=== PATIENT | female | born 1990 | race American Indian/Alaskan Native ===

== ENCOUNTER 2020-10-03 22:37 | Emergency (ER) | payer SELFPAY ==
[2020-10-03] MEDS ORDERED: ONDANSETRON 4 MG/2 ML INJ IV ONE (23:40)
[2020-10-03] MEDS ORDERED: MORPHINE 4 MG/1 ML INJ IV ONE (23:40)
--- NOTE | 2020-10-03 23:45 | Event Note ---
ED Screening Note Date of service: 10/03/20 Time: 23:41 ED Screening Note: Patient is a nulliparous 30-year-old -Citizen Of [place] female with no past medical history presents to the ED with acute onset persistent right lower quadrant pain for the last 4 days. Patient states that the pain initially was in the left lower quadrant area but shifted to the right lower quadrant area 2 days ago. Patient states that before arrival in the ED the pain was an 8 out of 10, sharp and persistent and that the pain gets worse with movement. Patient states that her LMP was September 01, 2020 and that although she usually experiences dysmenorrhea, she states that this usually is mild but that the current pain is worse than dysmenorrhea. Patient denies nausea, vomiting, diarrhea, dizziness, syncope, vaginal bleeding, vaginal discharge, dysuria, traumatic injury or heavy lifting, chest pain or shortness of breath, fever, chills or low back pain. This initial assessment/diagnostic orders/clinical plan/treatment(s) is/are subject to change based on patients health status, clinical progression and re- assessment by fellow clinical providers in the ED. Further treatment and workup at subsequent clinical providers discretion. Patient/guardian urged not to elope from the ED as their condition may be serious if not clinically assessed and managed. Initial orders include: CBC, CMP, UA, lipase, hCG urine, abdomen pelvis CT scan with contrast
[2020-10-04 00:08] LABS: Bilirubin,Urine NEG (Negative); Blood,Urine MOD (Negative); Color,Urine Yellow (Yellow); Mucus,Urine FEW /HPF; Urobilinogen,Urine < 2.0 mg/dL (<2.0)
--- NOTE | 2020-10-04 01:05 | Emergency Department Report ---
ED Abdominal Pain HPI - General Chief Complaint: Abdominal Pain Stated Complaint: PAIN IN PELVIC AREA/FREQ URINATION Source: patient Mode of arrival: Ambulatory Limitations: No Limitations - History of Present Illness Initial Comments: Patient is a nulliparous 30-year-old -[place] female with no past medical history presents to the ED with complaint of acute onset persistent severe right lower quadrant pain with urinary frequency and urgency for the last 4 days. Patient states the pain was initially on the left lower quadrant area but subsequently shifted to the right lower quadrant and has been persistent especially in the last 12 hours. Patient states that the pain is worse with any movement. Patient denies dizziness, syncope, chest pain, shortness of breath, fever, chills, nausea, vomiting, diarrhea, vaginal bleeding, vaginal discharge, dysuria or low back pain. MD Complaint: abdominal pain (Right lower quadrant pain), other (Urinary frequency and urgency) -: Sudden, days(s) (4) Location: RLQ, suprapubic Radiation: RLQ, suprapubic Migration to: no migration Severity scale (0 -10): 8 Quality: aching, sharp Consistency: constant Improves With: nothing Worsens With: movement Associated Symptoms: denies other symptoms. denies: nausea, vomiting, diarrhea, fever, chills, constipation, dysuria, hematemesis, hematochezia, anorexia, syncope, other - Related Data LMP (females 10-50): 3 weeks Previous Rx's Medication Instructions Recorded Last Taken Type Ibuprofen [Motrin] 800 mg PO Q8HR PRN #30 tablet 10/04/20 Unknown Rx Ondansetron [Zofran Odt] 4 mg PO Q6HR PRN #15 tab.rapdis 10/04/20 Unknown Rx cephALEXin [Keflex] 500 mg PO Q8HR #30 cap 10/04/20 Unknown Rx Allergies Allergy/AdvReac Type Severity Reaction Status Date / Time No Known Allergies Allergy Verified 10/04/20 01:07 ED Review of Systems ROS: Stated complaint: PAIN IN PELVIC AREA/FREQ URINATION Other details as noted in HPI Constitutional: denies: chills, fever Eyes: denies: eye pain, eye discharge, vision change ENT: denies: ear pain, throat pain Respiratory: denies: cough, shortness of breath, wheezing Cardiovascular: denies: chest pain, palpitations Endocrine: no symptoms reported Gastrointestinal: abdominal pain (RLQ). denies: nausea, vomiting, diarrhea Genitourinary: denies: urgency, dysuria, discharge Musculoskeletal: denies: back pain, joint swelling, arthralgia Skin: denies: rash, lesions Neurological: denies: headache, weakness, paresthesias Psychiatric: denies: anxiety, depression Hematological/Lymphatic: denies: easy bleeding, easy bruising ED Past Medical Hx - Past Medical History Previous Medical History?: No - Surgical History Past Surgical History?: No - Social History Smoking Status: Never Smoker Substance Use Type: None - Medications Home Medications: Home Medications Medication Instructions Recorded Confirmed Last Taken Type Ibuprofen [Motrin] 800 mg PO Q8HR PRN #30 tablet 10/04/20 Unknown Rx Ondansetron [Zofran Odt] 4 mg PO Q6HR PRN #15 tab.rapdis 10/04/20 Unknown Rx cephALEXin [Keflex] 500 mg PO Q8HR #30 cap 10/04/20 Unknown Rx ED Physical Exam - General Limitations: No Limitations General appearance: alert, in no apparent distress - Head Head exam: Present: atraumatic, normocephalic, normal inspection - Eye Eye exam: Present: normal appearance, PERRL, EOMI Pupils: Present: normal accommodation - ENT ENT exam: Present: normal exam, normal orophraynx, mucous membranes moist, TM's normal bilaterally, normal external ear exam - Neck Neck exam: Present: normal inspection, full ROM - Respiratory Respiratory exam: Present: normal lung sounds bilaterally. Absent: respiratory distress, wheezes, rales, stridor, chest wall tenderness, accessory muscle use, decreased breath sounds - Cardiovascular Cardiovascular Exam: Present: regular rate, normal rhythm, normal heart sounds. Absent: systolic murmur, diastolic murmur, rubs, gallop - GI/Abdominal GI/Abdominal exam: Present: soft, tenderness (Palpable RLQ tenderness), normal bowel sounds. Absent: guarding, rebound, hyperactive bowel sounds, hypoactive bowel sounds, organomegaly, mass - Extremities Exam Extremities exam: Present: normal inspection, full ROM, normal capillary refill - Back Exam Back exam: Present: normal inspection, full ROM. Absent: tenderness, CVA tenderness (R), CVA tenderness (L), muscle spasm, paraspinal tenderness, vertebral tenderness - Neurological Exam Neurological exam: Present: alert, oriented X3, CN II-XII intact, normal gait, reflexes normal - Psychiatric Psychiatric exam: Present: normal affect, normal mood - Skin Skin exam: Present: warm, dry, intact, normal color. Absent: rash ED Course Vital Signs 10/03/20 10/04/20 22:49 04:39 Pulse Rate 89 73 Respiratory 16 Rate Blood Pressure 126/71 [Right] O2 Sat by Pulse 100 100 Oximetry ED Medical Decision Making - Lab Data Result diagrams: 10/04/20 00:08 10/04/20 00:08 - Radiology Data Radiology results: report reviewed, image reviewed Findings [facility] [address] [place] [address] Ultrasound Report Signed Patient: KRISTY RAMOS MR#: [id number] : 1990 Acct:[id number] Age/Sex: 30 / F ADM Date: 10/03/20 Loc: ED Attending Dr: Ordering Physician: TOMI JOHNSTON Date of Service: 10/04/20 Procedure(s): US pelvic complete Accession Number(s): [id number] cc: TOMI JOHNSTON ULTRASOUND PELVIS INDICATION / CLINICAL INFORMATION: Pelvic pain, pelvic mass. TECHNIQUE: Transabdominal. Duplex Color Doppler used: Yes. COMPARISON: CT on 10/03/2020 FINDINGS: UTERUS: Present. - Appearance (if present): No significant abnormality. - Size in cm (if present): 6.1 x 4.6 x 5.1. - Endometrial Complex (if present): No significant abnormality.. Thickness in cm (if measured) = 1.39 - Mass lesions: None. - Additional findings: None. ADNEXA: As seen on the prior CT, there is a large simple cystic midline mass measuring 14.4 x 8.2 x 12.1 cm in the lower abdomen and pelvis. Is difficult to determine which ovary this mass is arising from. The visualized ovaries have normal blood flow. URINARY BLADDER: No significant abnormality. FREE FLUID: None. ADDITIONAL FINDINGS: None. IMPRESSION: 1. Large simple pelvic cyst, probable large ovarian cystic lesion. Given the size of over 14 cm, although the cyst appears simple, consultation with gynecology for potential removal is recommended as this could represent an ovarian neoplasm. Signer Name: Aaron Schmidt MD Signed: 10/04/2020 4:48 AM Workstation Name: [id number] Transcribed By: TITUS Dictated By: Aaron Schmidt MD Electronically Authenticated By: Aaron Schmidt MD Signed Date/Time: 10/04/20447 DD/ 5 TD/TT: Findings [facility] [address] [place] [address] Cat Scan Report Signed Patient: KRISTY RAMOS MR#: [id number] : 1990 Acct:[id number] Age/Sex: 30 / F ADM Date: 10/03/20 Loc: ED Attending Dr: Ordering Physician: TOMI JOHNSTON Date of Service: 10/03/20 Procedure(s): CT abdomen pelvis w con Accession Number(s): [id number] cc: TOMI JOHNSTON CT ABDOMEN AND PELVIS WITH CONTRAST HISTORY: Right lower quadrant pain COMPARISON: None TECHNIQUE: Routine abdominal and pelvic CT exam performed following intravenous contrast administration.. All CT scans at this location are performed using CT dose reduction for ALARA by means of automated exposure control. FINDINGS: CT ABDOMEN: Lung Bases: No significant abnormality. Liver: No significant abnormality. Biliary: No significant abnormality. Spleen: No significant abnormality. Unenlarged. Pancreas: No significant abnormality. Adrenals: No significant abnormality. Kidneys: No significant abnormality. Lymphatics: No lymphadenopathy. Vasculature: No significant abnormality. Bowel/Peritoneum: No significant abnormality. No free air. No free fluid. Appendix not visualized. No pericecal inflammation. CT PELVIC: : There is a large simple appearing cystic mass in the adnexal region extending into the lower abdomen, measuring 8.9 x 12.9 cm in greatest axial dimension and 13.3 cm in craniocaudal dimension. This appears to most likely be arising from the right ovary but exact origin is indeterminate. Lymphatics: No lymphadenopathy. Osseous Structures: No aggressive appearing osseous lesions. Additional Findings: None IMPRESSION: 1. No acute findings. 2. Large cystic pelvic and lower abdominal mass that is likely arising from the right ovary. This is concerning for a primary ovarian neoplasm. Pelvic ultrasound could be considered for further evaluation for internal complexity. Signer Name: Aaron Schmidt MD Signed: 10/04/2020 2:59 AM Workstation Name: [id number] Transcribed By: TITUS Dictated By: Aaron Schmidt MD Electronically Authenticated By: Aaron Schmidt MD Signed Date/Time: 10/04/20258 DD/ 6 TD/TT: - Medical Decision Making This is a nulliparous 30-year-old -[place] female with no past medical history presents to the ED with complaint of acute onset persistent severe right lower quadrant pain with urinary frequency and urgency for the last 4 days. Patient states the pain was initially on the left lower quadrant area but subsequently shifted to the right lower quadrant and has been persistent especially in the last 12 hours. Patient states that the pain is worse with any movement. In the ED, patient is alert and oriented x3 and is not in distress. Patient was treated for pain in the ED and lab test results were reviewed and are all nonactionable except for urinalysis that showed significant urinary tract infection. The abdomen pelvis CT scan with contrast showed a large cystic pelvic and lower abdominal mass that is likely arising from the right ovary. This is concerning for a primary ovarian neoplasm. The pelvic ultrasound showed similar large simple pelvic cyst, probable large ovarian cystic lesion. Given the size of over 14 cm, although the cyst appears simple, consultation with gynecology for potential removal is recommended as this could represent an ovarian neoplasm. I paged and discussed the patient's case with the [facility] physician on-call Dr. Steel, who was covering Dr. Mechelle De Souza and she advised that the patient be discharged home and advised to follow-up with Dr. Mechelle De Souza as an outpatient for further evaluation. On reevaluation, patient's pain is well controlled with medications. Patient was therefore discharged home on pain medications and given referral to the [facility] physician stone cleaner Dr. Mechelle De Souza for follow-up. Patient was advised to contact Dr. De Souza office first thing in the morning or within 2 to 3 days to schedule a follow-up appointment for further evaluation. - Differential Diagnosis Appendicitis; Ovarian cyst; UTI; ectopic; PID; STD Critical care attestation.: If time is entered above; I have spent that time in minutes in the direct care of this critically ill patient, excluding procedure time. ED Disposition Clinical Impression: Acute abdominal pain in right lower quadrant, Acute urinary tract infection, Right ovarian cyst, Mass of right ovary Disposition: - TO HOME OR SELFCARE Is pt being admited?: No Does the pt Need Aspirin: No Condition: Stable Instructions: Urinary Tract Infection, Adult, [id number], Abdominal Pain, Adult, [id number], Ovarian Cyst, [id number], Abdominal Pain (ED) Additional Instructions: All lab test results were reviewed and are all nonactionable except urinalysis that showed significant urinary tract infection. Abdomen pelvis CT scan with contrast showed a large cystic pelvic and lower abdominal mass that is likely arising from the right ovary. This is concerning for a primary ovarian neoplasm. The pelvic ultrasound showed similar large simple pelvic cyst, probable large ovarian cystic lesion. Given the size of over 14 cm, although the cyst appears simple, consultation with gynecology for potential removal is recommended as this could represent an ovarian neoplasm. Therefore take medications as needed with food, drink plenty of fluids and follow-up with your [facility] physician Dr. Mechelle De Souaz in 2 to 3 days for reevaluation. Return to the ED immediately if symptoms get worse. Prescriptions: cephALEXin [Keflex] 500 mg PO Q8HR #30 cap Ibuprofen [Motrin] 800 mg PO Q8HR PRN #30 tablet PRN Reason: Pain , Severe (7-10) Ondansetron [Zofran Odt] 4 mg PO Q6HR PRN #15 tab.rapdis PRN Reason: Nausea Referrals: MECHELLE DE SOUZA MD [Staff Physician] - 2-3 Days Forms: Work/School Release Form(ED) Time of Disposition: 05:31 Print Language: SOUTH KOREAN
[2020-10-04 01:20] LABS: Basophils % (Auto) 0.6 % (0.0-1.8); Eosinophils # (Auto) 0.1 K/mm3 (0.0-0.4); Eosinophils % (Auto) 1.1 % (0.0-4.3); Hematocrit 39.4 % (30.3-42.9); Hemoglobin 13.1 gm/dl (10.1-14.3); Lymphocytes # (Auto) 1.1 K/mm3 (1.2-5.4); Lymphocytes % (Auto) 22.1 % (13.4-35.0); Mean Corpuscular HGB Conc 33 % (30-34); Mean Corpuscular Volume 94 fl (79-97); Monocytes # (Auto) 0.4 K/mm3 (0.0-0.8); Monocytes % (Auto) 8.5 % (0.0-7.3); Platelet Count 217 K/mm3 (140-440); Red Cell Distribution Width 13.5 % (13.2-15.2)
[2020-10-04] MEDS ORDERED: cephALEXin 500 MG CAP PO ONE (01:56)
[2020-10-04 02:17] LABS: Alanine Aminotransferase 15 units/L (7-56); Albumin 4.4 g/dL (3.9-5); Blood Urea Nitrogen 9 mg/dL (7-17); Calcium 9.1 mg/dL (8.4-10.2); Hemolysis Index 3
[2020-10-04 02:22] LABS: BUN/Creatinine Ratio 13
--- NOTE | 2020-10-04 03:03 | Cat Scan Report ---
CT ABDOMEN AND PELVIS WITH CONTRAST HISTORY: Right lower quadrant pain COMPARISON: None TECHNIQUE: Routine abdominal and pelvic CT exam performed following intravenous contrast administrat ion.. All CT scans at this location are performed using CT dose reduction for ALARA by means of autom ated exposure control. FINDINGS: CT ABDOMEN: Lung Bases: No significant abnormality. Liver: No significant abnormality. Biliary: No significant abnormality. Spleen: No significant abnormality. Unenlarged. Pancreas: No significant abnormality. Adrenals: No significant abnormality. Kidneys: No significant abnormality. Lymphatics: No lymphadenopathy. Vasculature: No significant abnormality. Bowel/Peritoneum: No significant abnormality. No free air. No free fluid. Appendix not visualized. No pericecal inflammation. CT PELVIC: : There is a large simple appearing cystic mass in the adnexal region extending into the lower abdo men, measuring 8.9 x 12.9 cm in greatest axial dimension and 13.3 cm in craniocaudal dimension. This appears to most likely be arising from the right ovary but exact origin is indeterminate. Lymphatics: No lymphadenopathy. Osseous Structures: No aggressive appearing osseous lesions. Additional Findings: None IMPRESSION: 1. No acute findings. 2. Large cystic pelvic and lower abdominal mass that is likely arising from the right ovary. This is concerning for a primary ovarian neoplasm. Pelvic ultrasound could be considered for further evaluati on for internal complexity. Signer Name: Aaron Schmidt MD Signed: 10/04/2020 2:59 AM Workstation Name: [id number]
[2020-10-04 04:40] VITALS: BP 126/71
--- NOTE | 2020-10-04 04:52 | Ultrasound Report ---
ULTRASOUND PELVIS INDICATION / CLINICAL INFORMATION: Pelvic pain, pelvic mass. TECHNIQUE: Transabdominal. Duplex Color Doppler used: Yes. COMPARISON: CT on 10/03/2020 FINDINGS: UTERUS: Present. - Appearance (if present): No significant abnormality. - Size in cm (if present): 6.1 x 4.6 x 5.1. - Endometrial Complex (if present): No significant abnormality.. Thickness in cm (if measured) = 1.39 - Mass lesions: None. - Additional findings: None. ADNEXA: As seen on the prior CT, there is a large simple cystic midline mass measuring 14.4 x 8.2 x 1 2.1 cm in the lower abdomen and pelvis. Is difficult to determine which ovary this mass is arising fr om. The visualized ovaries have normal blood flow. URINARY BLADDER: No significant abnormality. FREE FLUID: None. ADDITIONAL FINDINGS: None. IMPRESSION: 1. Large simple pelvic cyst, probable large ovarian cystic lesion. Given the size of over 14 cm, alth ough the cyst appears simple, consultation with gynecology for potential removal is recommended as th is could represent an ovarian neoplasm. Signer Name: Aaron Schmidt MD Signed: 10/04/2020 4:48 AM Workstation Name: [id number]
== END 2020-10-04 01:22 | disposition home or self-care (01) ==
LOC: ED 22:37
DX: N39.0 Urinary tract infection, site not specified (principal); N83.201 Unspecified ovarian cyst, right side; N83.8 Other noninflammatory disorders of ovary, fallopian tube and broad ligament; R10.31 Right lower quadrant pain; Z79.899 Other long term (current) drug therapy
CPT/HCPCS: 36415; 74177; 76856; 80053; 81001; 83690; 84703; 85025; 87086; 96374; 96375; 99284; J2270; J2405; Q9967